=== PATIENT | male | born 1925 | race Caucasian/White ===

== ENCOUNTER 2016-07-26 19:24 | Emergency (ER) | payer MEDICARE ==
[~2016-07-26 19:24] MED LIST: ACETAMINOPHEN325 M1 PO; ADULT LOW DOSE81 M1 PO; AMLODIPINE BESY10 MG PO; ASPIR 8181 MG PO; ATENOLOL25 MG PO; CAPTOPRIL PO; EQL FISH OIL 1,1 CA1 PO; FISH OIL 1,2001 CAP PO; LEVAQUIN500 MG PO; MULTI-VITAMIN1 TAB PO; NORVASC5 M2 PO; PRAVACHOL40 M1 PO; PRAVACHOL40 MG PO; SYNTHROID75 MC1 PO; SYNTHROID75 MCG PO; SYNTHROID88 MC1 PO; VALTREX1000 MG PO; ZITHROMAX250 MG PO
[2016-07-26 20:00] LABS: URINE BILIRUBIN NEGATIVE (NEG); URINE BLOOD LARGE (NEG); URINE GLUCOSE (UA) NEGATIVE (NEG); URINE KETONE SMALL (NEG); URINE LEUKOCYTE ESTERASE POSITIVE (NEG); URINE NITRITE POSITIVE (NEG); URINE PROTEIN MODERATE (NEG); URINE SPECIFIC GRAVITY 1.025 (1.003-1.030)
[2016-07-26 20:04] LABS: URINE APPEARANCE CLOUDY; URINE COLOR DARK YELLOW
[2016-07-26 20:07] LABS: URINE BACTERIA 2+; URINE MUCUS 1+; URINE RBC FULL FIELD /[HPF] (0-5); URINE WBC FULL FIELD /[HPF] (0-5)
[2016-07-26 20:08] LABS: BASO % 0.1 % (0-2); EOS % 0.3 % (0-7); HCT-HEMATOCRIT 42.3 % (36.0-53.5); HGB-HEMOGLOBIN 14.4 gm/dl (13.5-17.0); IMMATURE GRANULOCYTES ABSOLUTE 0.02 tho/cmm (0-0.03); IMMATURE GRANULOCYTES PERCENT 0.3 % (0-0.3); LYMPH % 27.2 % (20-45); MCH (MEAN CORPUSCULAR HGB) 31.4 pg (28.0-32.0); MCV (MEAN CELL VOLUME) 92.4 fl (82.0-96.0); MEAN PLATELET VOLUME 11.2 cmc (9.4-12.4); MONO % 17.1 % (0-12); MONOCYTE ABSOLUTE COUNT 1.2 tho/cmm (0.0-1.2); PLATELET COUNT 136 tho/cmm (150-450); RED BLOOD COUNT 4.58 mil/cmm (4.40-5.70); RED CELL DISTRIBUTION WIDTH 15.7 % (12.4-16.4); WHITE BLOOD COUNT 7.3 tho/cmm (4.0-10.0)
[2016-07-26] MEDS ORDERED: BACTRIM DS TAB1 EAC2 PO (20:13)
[2016-07-26 20:20] LABS: ANION GAP 11 mmol/L (0-20); BLOOD UREA NITROGEN 17 mg/dl (6-24); CALCIUM 9.4 mg/dl (8.5-10.5); CARBON DIOXIDE-VENOUS 27 mmol/L (22-32); CHLORIDE 107 mmol/l (96-110); CREATININE 1.09 mg/dl (0.60-1.30); GLUCOSE 125 mg/dL (70-110); POTASSIUM 4.1 mmol/L (3.7-5.1); SODIUM 141 mmol/L (135-145); eGFR VALUE FOR BLACK 69 mL/Min
== END 2016-07-26 20:49 ==
LOC: EDMED 19:24
PROVIDERS: Emergency Medicine
DX: N30.91 Cystitis, unspecified with hematuria (principal); Z87.891 Personal history of nicotine dependence